=== PATIENT | male | born 1970 | race Caucasian/White ===

== ENCOUNTER → 2017-09-19 20:06 | Outpatient (REF) | payer BC, SELFPAY ==
[2017-09-19 20:24] LABS: Hemoglobin A1C 5.9 % (4.5-6.2)
[2017-09-19 20:27] LABS: HDL Cholesterol 35 mg/dL (40-60); LDL CHOLESTEROL 131 mg/dL (<100); Triglyceride 608 mg/dL (30-150)
[2017-09-19 20:39] LABS: Cholesterol 210 mg/dL (50-200)
== END ==
LOC: NCHCN 20:06
PROVIDERS: PCP Nurse Practitioner; Visit Provider Nurse Practitioner
DX: Z00.00 Encounter for general adult medical examination without abnormal findings (principal); Z13.1 Encounter for screening for diabetes mellitus; Z13.220 Encounter for screening for lipoid disorders
CPT/HCPCS: 80061; 83721; 83036

== ENCOUNTER → 2017-10-13 16:20 | Outpatient (REF) | payer BC, SELFPAY ==
--- NOTE | 2017-10-13 14:30 | SKI_PTH ---
PATIENT: Paxton Franco LOC: [facility] U#:[id number] AGE/SX: 54/M ROOM: RE10/13/[address]: Chad Zavala DO : 1970 BED: DIS: SPEC #: [id number] RECD: 10/13/17 17:45 STATUS: ERIC TURNER #: [id number] MASOUD: 10/13/17 14:[address]: Chad Zavala DEPT: Surgical Specimen RECD BY: Mariia Peña ENTERED: 10/13/17 17:46 SP TYPE: SKI OTHR DR: María Colmenares Tissues: 1 - SKIN BIOPSY(SHAVE/PUNCH) 2 - SKIN BIOPSY(SHAVE/PUNCH) Procedures: SKIN LEVEL 4 Comments: [id number]
== END ==
LOC: LBN 16:20
PROVIDERS: PCP Nurse Practitioner; Visit Provider Surgery
DX: D22.5 Melanocytic nevi of trunk (principal)
CPT/HCPCS: 88305

== ENCOUNTER 2018-03-18 18:30 | Emergency (ER) | payer BC, SELFPAY ==
[2018-03-18 18:40] VITALS: BP 135/86; PULSE 120; RESP 20; TEMP 36.5; O2SAT 98
--- NOTE | 2018-03-18 18:48 | ED.GENADUL_ITS ---
Discharge Plan Disposition Patient Disposition: HOME Condition: Good Discharge Details Chief Complaint: RespSymp Clinical Impression: CAP (community acquired pneumonia) Reason For Visit: painful cough Primary Care Provider: María Colmenares ED Provider: Jesse Green Meds and New Rx's Prescriptions: New benzonatate 100 mg capsule 100 mg PO TID PRN (Reason: cough) Qty: 20 RF: 0 ibuprofen 600 mg tablet 600 mg PO TID PRN (Reason: pain) Qty: 20 RF: 0 doxycycline hyclate 100 mg tablet 100 mg PO BID Qty: 14 RF: 0 Discharge Instructions Instructions: Community Acquired Pneumonia (ED) Additional Instructions: Your CT scan shows evidence of a peripheral pneumonia. Because of its location you will need close follow-up and radiology recommends repeat imaging in 6-8 weeks. We will treat you with doxycycline. Use benzonate for cough. Use Motrin for pain. Stay hydrated over the weekend. Follow-up with your primary care next week to see how you are doing. Return to the emergency department if you develop increasing shortness of breath, worsening pain, fever, altered mental status, other concerns. Referrals: María Colmenares [Primary Care Provider] - Discharge Data Discharge Date/Time-TO BE ENTERED AT DEPARTURE: 03/19/18 00:25 Discharge Physician: Renetta Brower Medical Decision Making <Renetta Brower DO - Last Filed: 03/19/18 20:49> 47yo M with no past medical history who presents with cold symptoms for the past 3 weeks which had improved until 2 days ago then developed significant left- sided anterior chest pain after a coughing fit today. Now complaining mainly of pain with deep breath. Denies any shortness of breath, fever. Heart rate 120s. Lungs clear to auscultation. Patient has no tenderness to palpation of his anterior and lateral chest wall on the left side where his area of pain is. He has no pain with movement. Although his presentation appears more muscular due to coughing, he does not have pain with movement or tenderness which I would expect with a chest wall strain. Due to his tachycardia which may be associated with an infection, will obtain EKG, labs including d-dimer, chest x-ray and will give a dose of Toradol and reassess. EKG notes a rate of 101, sinus tachycardia, no acute ST findings. 1999 --case endorsed to Dr. Green to follow-up on labs and imaging and final disposition. Medical Records Medical records reviewed: Yes I reviewed the patient's medical records. Lab Data Lab results reviewed: Yes I reviewed the patient's lab results. ECG Data Attestation: I personally reviewed and interpreted this ECG (s) as follows: Interpretation: 1903 -- 101 bpm. Sinus tachycardia. No acute ST elevation or depression. QTc 4 7. QRS 84. HPI <Renetta Brower DO - Last Filed: 03/19/18 20:49> General Mode of arrival: ambulatory . Date/Time Provider Initiated Documentation: 03/18/18 18:41 . Limitations to Documentation: no limitations . Information obtained by: patient . HPI Narrative: Patient is a 47-year-old male with no past medical history who presents with left-sided chest pain today that is worse with deep breath that became worse after coughing today. Patient states he has had cold symptoms for the past 3 weeks which had improved until 2 days ago when it returned with cold chills night at nighttime patient states his cough is mainly dry but occasionally productive of white sputum. Patient states today he was coughing when he felt a sudden onset of left-sided chest pain. Patient denies any pain with movement or palpation and states it only occurs with deep breath. Patient has not taken anything for pain. Patient denies any shortness of breath, recent travel, recent surgery, leg pain or swelling, sore throat or ear pain. He does admit to occasional tickle in the back of his throat. Related Data Home Medications Medication Instructions Recorded Confirmed benzonatate 100 mg PO TID PRN #20 cap 03/19/18 doxycycline hyclate 100 mg PO BID #14 tab 03/19/18 ibuprofen 600 mg PO TID PRN #20 tab 03/19/18 Previous Rx's Medication Instructions Recorded benzonatate 100 mg PO TID PRN #20 cap 03/19/18 doxycycline hyclate 100 mg PO BID #14 tab 03/19/18 ibuprofen 600 mg PO TID PRN #20 tab 03/19/18 Allergies Allergy/AdvReac Type Severity Reaction Status Date / Time No Known Allergies Allergy Unverified 03/18/18 23:54 General Stated Complaint: RespSymp REECE: 3 Review of Systems <DO Aubrey Birmingham Last Filed: 03/19/18 20:49> Review of Systems All systems reviewed & are unremarkable except as noted in HPI and below Constitutional Reports as per HPI, Denies chills and Denies fever(s) Eyes Denies blurry vision ENT Denies dizziness, Denies sore throat and Denies throat swelling Cardiovascular Denies chest pain and Denies dyspnea Respiratory Reports cough, Reports pain on inspiration, Reports pain with cough and Denies dyspnea Gastrointestinal Denies abdominal pain, Denies diarrhea and Denies vomiting Genitourinary Denies hematuria and Denies dysuria Musculoskeletal Denies back pain and Denies numbness Integumentary/Breasts Denies lesions and Denies rash Neurologic Denies dizziness, Denies focal weakness and Denies numbness Allergic/Immunologic Denies throat swelling PFSH <Renetta Brower DO - Last Filed: 03/19/18 20:49> Medical History No significant past medical history (Acute) Surgical History Biopsy, Soft Tissue (10/13/17) Social History Smoking/Tobacco Use Status: Never alcohol intake: current alcohol intake frequency: a few times a week substance use type: does not use Exam <Renetta Brower DO - Last Filed: 03/19/18 20:49> Const General: cooperative and healthy appearing Orientation: alert and awake HENMT Head: normal to inspection Ears: hearing grossly normal bilaterally, external ears normal and TM's normal bilaterally General nose exam: external nose normal Face and sinus: normal facial exam Mouth: oral mucosae normal Teeth and gingiva: dentition normal Throat: posterior oropharynx normal Eyes General: appearance normal, both eyes and all related structures Eyelids: eyelids normal EOM: EOM intact bilaterally Neck Neck: normal visual inspection Lymphatic: no lymphadenopathy noted Chest Chest: normal inspection of the chest, normal palpation of entire chest wall, no tenderness and other (No pain with movement noted) Resp Effort & Inspection: normal respiratory effort and able to speak in complete sentences Auscultation: clear to auscultation bilaterally Cardio Rate: regular rate Rhythm: regular rhythm GI Inspection: normal to inspection Palpation: soft, not firm, no guarding, no hepatosplenomegaly, no masses and nontender Auscultation: normal bowel sounds Skin General skin exam: no rashes or lesions noted Neuro General: alert and awake Cognition: normal cognition Speech: speech normal Gait: normal gait Motor: muscle tone normal throughout Sensory Exam: no sensory deficits noted Extrem General: normal to inspection, full ROM, normal capillary refill, calf tenderness and no edema Psych Appearance: grossly normal Mental Status: mental status grossly normal Speech and Movement: speech and movement normal Affect: normal affect Thought Process: normal Course <Renetta Brower DO - Last Filed: 03/19/18 20:49> Vital Signs Temperature 97.7 F 03/18/18 18:40 Pulse 120 H 03/18/18 18:40 Respiratory Rate 20 03/18/18 18:40 Blood Pressure 135/86 03/18/18 18:40 Pulse Oximetry 98 03/18/18 18:40 Temperature 97.7 F 03/18/18 18:40 Temperature Source Temporal Artery Scan 03/18/18 18:40 Pulse 120 H 03/18/18 18:40 Respiratory Rate 20 03/18/18 18:40 Respiratory Effort 03/18/18 18:43 Blood Pressure 135/86 03/18/18 18:40 Blood Pressure Position Sitting 03/18/18 18:40 Pulse Oximetry 98 03/18/18 18:40 Oxygen Delivery Method Room Air 03/18/18 18:40 Oxygen Flow Rate 0 03/18/18 18:40 Pain Level 10 03/18/18 18:40 Comment 03/18/18 18:40 Sign Out <Renetta Brower DO - Last Filed: 03/19/18 20:49> Sign Out Data: Sign Out Comment: Case endorsed to Dr. Green to follow-up on labs, imaging and final disposition. Last updated by Renetta Brower DO at 03/18/18 20:12 Post-Handoff Eval: Patient signed out to me pending laboratory studies and imaging. Patient had presented with prolonged cough and now has pleuritic chest pain. Laboratory studies significant for a mild elevation of white count as well as a mild anemia. Chemistries unremarkable. D-dimer positive. Troponin negative. Chest x-ray with a peripheral opacity consistent with pneumonia versus infarct. Because of the positive d-dimer and pleuritic pain CTA was ordered. The initial CTA of the chest was nondiagnostic as the pulmonary arteries were not opacified with dye. Patient was getting LR for hydration. Repeat CTA was ordered with continued hydration. Repeat chest CT is read as negative for pulmonary embolus. He does have what appears to be a peripheral pneumonia though radiology recommends a follow-up in 6-8 after therapy to be sure lesion/opacity has resolved. Patient vital signs are good except saturations are low to mid 90s. He is not tachypneic. He is a PSI class I should do fine outpatient. He will be started on doxycycline 100 mg twice a day. We will give Tessalon 100 mg 3 times a day for cough. Will have patient follow up with PCP next week. Return to ED if worse in anyway.
--- NOTE | 2018-03-18 18:59 | DI.RAD_ITS ---
SYMPTOM/DIAGNOSIS: LEFT SIDED CHEST PAIN, R/O ACUTE DISEASE PA AND LATERAL CHEST: There are no prior comparison exams. The heart size is normal. There is a somewhat rounded area of increased opacities seen in the left lower lobe laterally. The remainder of the lungs are clear. There is no evidence of an effusion. IMPRESSION: Left lower lobe opacity , could represent pneumonia vs mass or pulmonary infarct.
[2018-03-18] MEDS: Ketorolac 60 MG/2 ML VIAL IM (19:13)
[2018-03-18 20:45] LABS: Abs Immature Grans 0.04 k/cumm (0.0-0.09); Absolute Basophil Count 0.02 k/cumm (0.0-0.2); Absolute Eosinophil Count 0.18 k/cumm (0.0-0.7); Absolute Lymphocyte Count 1.98 k/cumm (1.2-3.4); Basophils % 0.2; Eosinophils % 1.6; HCT 38.5 % (40.0-50.0); HGB 12.8 g/dL (13.5-17.5); Immature Grans % 0.3; Lymphocytes % 17.2; Mean Corp. HGB Concentration 33.2 g/dL (32.0-36.0); Mean Corpuscular Hemoglobin 28.8 pg (27.0-33.0); Mean Corpuscular Volume 86.7 fL (80-95); Mean Platelet Volume 11.2 fL (8.0-11.0); Monocytes % 10.2; Neutrophils % 70.5; Platelet Count 241 x1000/uL (130-400); RBC 4.44 m/cumm (4.50-6.00); RBC Distribution Width 12.6 % (11.8-14.1); White Blood Cell Count 11.52 k/cumm (4.4-10.8)
[2018-03-18 20:46] LABS: Absolute Monocyte Count 1.18 k/cumm (0.11-0.7); Absolute Neutrophil Count 8.12 k/cumm (1.2-6.7)
--- NOTE | 2018-03-18 20:47 | DI.VRAD_ITS ---
EXAM: XR Chest, 2 Views EXAM DATE/TIME: 03/18/2018 7:00 PM CLINICAL HISTORY: 47 years old, male; Pain; Chest pain; Left-sided chest pain TECHNIQUE: XR of the chest, 2 views. COMPARISON: No relevant prior studies available. FINDINGS: Lungs: Peripheral left basilar opacity. Pleural space: No pneumothorax. No sizable pleural effusion. Heart/Mediastinum: No cardiomegaly. Bones/joints: Unremarkable. IMPRESSION: Peripheral left basilar opacity. This may represent pneumonia. Pulmonary infarct can have a similar appearance. Alternatively, this may represent a pleural-based lesion. Dictated and Authenticated by: Raul Alston MD. Ordering:HEIDE Jackson MD
[2018-03-18 20:48] LABS: ALT 18 U/L (12-78); AST 13 U/L (15-37); Albumin 3.2 g/dL (3.4-5.0); Alkaline Phosphatase 83 U/L (46-116); Anion Gap 10.9 mmol/L (3-11); BUN 14 mg/dL (7-18); Bilirubin, Total 0.5 mg/dL (0.2-1.0); CO2 26.1 mmol/L (21.0-32.0); CREATININE 0.96 mg/dL (0.70-1.30); Calcium 9.1 mg/dL (8.5-10.1); Chloride 101 mmol/L (98-107); Glucose 102 mg/dL (70-100); Magnesium 2.2 mg/dL (1.8-2.4); Potassium 3.8 mmol/L (3.5-5.1); Sodium 138 mmol/L (136-145); Total Protein 8.1 g/dL (6.4-8.2)
[2018-03-18 20:51] LABS: Troponin I < 0.02 ng/mL (0.00-0.06)
[2018-03-18 21:03] LABS: D-Dimer 2176 ng/mlFEU (<500)
[2018-03-18] MEDS: Lactated Ringers 1,000 ML 200 ML IV (21:23)
[2018-03-18] MEDS: Omnipaque 350 MG/ML 100 ML BTL IJ ×2 (21:43→22:58)
--- NOTE | 2018-03-18 21:45 | DI.CT_ITS ---
SYMPTOM/DIAGNOSIS: LEFT SIDED PAIN/POSITIVE D-DIMER, ABNORMAL CXR CT ANGIOGRAPHY OF THE CHEST: CT angiography was performed with multi slice acquisition and multi planar and 3D reconstruction. The exam was performed during the arterial phase. The aorta is well opacified with IV contrast. There is no evidence of dissection or aneurysm. The pulmonary arteries are suboptimally opacified No gross central filling defects are seen. More peripheral emboli cannot be excluded. There is a focus of rounded density in the left lower lobe anterolaterally. The findings could represent consolidation, mass or infarct. The remainder of the lungs are clear. There is no evidence of effusion, pleural or pericardial effusion or adenopathy. The visualized portions of the upper abdomen are unremarkable. No suspicious bony abnormalities are seen. IMPRESSION: Roughly 5 cm area of increased density in the left lower lobe may represent consolidated pneumonia, infarct or mass.
--- NOTE | 2018-03-18 22:25 | DI.VRAD_ITS ---
EXAM: CT Angiography Chest With Contrast EXAM DATE/TIME: 03/18/2018 9:10 PM CLINICAL HISTORY: 47 years old, male; Signs and symptoms; Other: Abnormal cxr; Additional info: Elevated d-dimer TECHNIQUE: Axial computed tomographic angiography images of the chest with intravenous contrast using CT angiography protocol. All CT scans at this facility use at least one of these dose optimization techniques: automated exposure control; mA and/or kV adjustment per patient size (includes targeted exams where dose is matched to clinical indication); or iterative reconstruction. Coronal and sagittal reformatted images were created and reviewed. MIP reconstructed images were created and reviewed. CONTRAST: 88 ml of [id number] administered intravenously. COMPARISON: CR XR CHEST 2V PA LATERAL 03/18/2018 8:24 PM FINDINGS: Pulmonary arteries: Due to timing of the scan after the injection of intravenous contrast, there is poor opacification of the pulmonary arteries; therefore, study is nondiagnostic for evaluation of pulmonary embolus. Aorta: No aortic aneurysm. No aortic dissection. Lungs: Within the superior segment of the left lower lobe, there is a 4.7 x 4.3 cm heterogeneous focus, which corresponds to the opacity seen on the recent chest radiograph. Pleural space: Normal. No pneumothorax. No pleural effusion. Heart: No cardiomegaly. No pericardial effusion. Lymph nodes: Unremarkable. No enlarged lymph nodes. Bones/joints: Unremarkable. No acute fracture. Soft tissues: Unremarkable. IMPRESSION: 1. Due to timing of the scan after the injection of intravenous contrast, there is poor opacification of the pulmonary arteries; therefore, study is nondiagnostic for evaluation of pulmonary embolus. 2. Within the superior segment of the left lower lobe, there is a 4.7 x 4.3 cm heterogeneous focus, which corresponds to the opacity seen on the recent chest radiograph. This most likely represents pneumonia. However, pulmonary infarct and carcinoma are also in the differential diagnoses. After appropriate therapy, recommend followup in 6-8 weeks to document resolution. Dictated and Authenticated by: Raul Alston MD. Ordering:JADE Molina MD
--- NOTE | 2018-03-18 22:38 | DI.CT_ITS ---
SYMPTOM/DIAGNOSIS: NON-DIAGNOSTIC CTA PREVIOUSLY CHEST CT FOR PULMONARY EMBOLISM: Comparison: CTA of the same day. CT angiography was performed with multi slice acquisition and multi planar and 3D reconstruction. The exam was performed following IV contrast. The pulmonary arteries and aorta are well opacified. No pulmonary artery filling defects are seen. There is again noted to be an area of increased opacity in the left lower lobe. This most likely represents pneumonia, mass or infarct are also possibilities. Clinical correlation is recommended. Follow up chest x-ray is recommended.
[2018-03-18 23:00] VITALS: BP 122/74; PULSE 84; RESP 16; TEMP 36.6; O2SAT 94
--- NOTE | 2018-03-18 23:46 | DI.VRAD_ITS ---
EXAM: CT Angiography Chest With Contrast EXAM DATE/TIME: 03/18/2018 10:39 PM CLINICAL HISTORY: 47 years old, male; Signs and symptoms; Cough; Patient HX: Painful cough, rule out pe; Additional info: Previous non-diagnostic pe study performed. TECHNIQUE: Axial computed tomographic angiography images of the chest with intravenous contrast using CT angiography protocol. All CT scans at this facility use at least one of these dose optimization techniques: automated exposure control; mA and/or kV adjustment per patient size (includes targeted exams where dose is matched to clinical indication); or iterative reconstruction. Coronal and sagittal reformatted images were created and reviewed. MIP reconstructed images were created and reviewed. CONTRAST: 100 ml of Omnipaque 350 administered intravenously. COMPARISON: CT Private^PE (Adult) 03/18/2018 9:35 PM FINDINGS: Pulmonary arteries: No acute pulmonary embolus. Aorta: Normal. No aortic aneurysm. No aortic dissection. Lungs: Within the superior segment of the left lower lobe, there is a 4.7 x 4.3 cm heterogeneous focus, which corresponds to the opacity seen on the recent chest radiograph. Pleural space: Normal. No pneumothorax. Trace left pleural effusion. Heart: No cardiomegaly. Lymph nodes: Unremarkable. No enlarged lymph nodes. Bones/joints: Unremarkable. No acute fracture. Soft tissues: Unremarkable. IMPRESSION: 1. No acute pulmonary embolus. 2. Within the superior segment of the left lower lobe, there is a 4.7 x 4.3 cm heterogeneous focus, which corresponds to the opacity seen on the recent chest radiograph. This most likely represents pneumonia. However, pulmonary infarct and carcinoma are also in the differential diagnoses. After appropriate therapy, recommend followup in 6-8 weeks to document resolution. Dictated and Authenticated by: Raul Alston MD. Ordering:JADE Molina MD
[2018-03-19] MEDS: Doxycycline Hyclate 100 MG CAP PO (00:34)
[2018-03-19] MEDS: Benzonatate 100 MG CAP PO (00:34)
[2018-03-19 00:37] VITALS: BP 122/74; PULSE 84; RESP 16; TEMP 36.6; O2SAT 94
== END 2018-03-19 00:25 | disposition home or self-care (01) ==
PROVIDERS: Physician Assistant; Emergency Provider Emergency Medicine; PCP Nurse Practitioner
DX: J18.9 Pneumonia, unspecified organism (principal); R00.0 Tachycardia, unspecified
CPT/HCPCS: 36415; 71275; 80053; 96360; 96361; 96372; 99285; 71046; 83735; 84484; 85025; 85379; J1885; J3490

== ENCOUNTER 2018-06-19 01:43 | Outpatient (CLI) | payer BC, SELFPAY ==
--- NOTE | 2018-06-19 14:45 | DI.CT_ITS ---
SYMPTOMS/DIAGNOSIS: ABNORMAL FINDINGS ON DIAGNOSTIC IMAGING OF LUNG, R91.8, ? MASS VERSUS LEFT LOWER LOBE PNEUMONIA, CONTINUES TO COUGH SOME BLOOD BUT ASSOCIATED WITH BLOODY NOSE CHEST CT: CT examination of the chest was performed with a bolus infusion of 70 cc of Omnipaque 350. The examination is compared with most recent chest CT of 03/18/2018. Previous examination showed a 46 mm in diameter mass-like lesion of the left lower lobe. Small left pleural effusion or pleural thickening also was present on the previous examination. On today's examination, this mass-like radiodensity has decreased significantly in size and now measures about 21 mm in greatest diameter. There is a small area of cavitation. An air bronchogram appears to traverse the inferior aspect of the lesion. No definite pleural effusion seen on today's examination. No new pulmonary lesion identified. Tracheobronchial tree appears intact. No mediastinal or hilar adenopathy. Ectasia of the aortic root and ascending aorta is noted at about 43 mm. No evidence of pulmonary embolic disease. Images obtained through the upper abdomen show unremarkable appearance of visualized portions of the liver, spleen, pancreas, adrenals and kidneys. CONCLUSION: Interval decrease in size of left lower lobe intrapulmonary mass- like lesion, which is now cavitating. The findings are most consistent with an infectious process. Neoplastic disease not excluded and a follow-up chest CT is recommended in four to six weeks.
== END 2018-06-19 02:03 ==
PROVIDERS: PCP Nurse Practitioner; Visit Provider Specialist/Technologist Athletic Trainer
DX: R91.8 Other nonspecific abnormal finding of lung field (principal); R05 Cough; R04.2 Hemoptysis; J90 Pleural effusion, not elsewhere classified
CPT/HCPCS: 71260

== ENCOUNTER 2022-10-11 18:30 | Outpatient (REF) | payer OTHER, SELFPAY ==
[2022-10-11 15:47] LABS: HCT 42.8 % (40.0-50.0); HGB 14.5 g/dL (13.5-17.5); MCH 29.4 pg (27.0-33.0); MCHC 33.9 % (32.0-36.0); MCV 87 fL (80-95); MPV 13.3 fL (8.0-11.0); RBC 4.93 10^6/uL (4.36-5.78); RDW 12.5 % (11.8-14.1); RDW-SD 39.8 fL; WBC 4.42 10^3/uL (4.4-10.8)
[2022-10-11 16:02] LABS: ALT 32 U/L (16-63); AST 17 U/L (15-37); Albumin 4.1 g/dL (3.4-5.0); Alkaline Phosphatase 91 U/L (46-116); Anion Gap 10.1 mmol/L (3-11); BUN 14 mg/dL (7-18); Bilirubin, Total 0.6 mg/dL (0.2-1.0); CO2 24.9 mmol/L (21.0-32.0); Calcium 9.1 mg/dL (8.5-10.1); Calculated LDL 129 mg/dL (<100); Chloride 105 mmol/L (98-107); Cholesterol 200 mg/dL (<200); Estimated GFR 89.44 (mL/min/1.73m2); Glucose 97 mg/dL (74-106); HDL Cholesterol 45 mg/dL (40-60); Potassium 4.2 mmol/L (3.5-5.1); Sodium 140 mmol/L (136-145); Total Protein 7.2 g/dL (6.4-8.2); Triglyceride 130 mg/dL (<150)
[2022-10-11 16:35] LABS: Platelet Count 166 10^3/uL (130-400)
[2022-10-11 16:36] LABS: Hemoglobin A1C 5.8 % (<5.7)
[2022-10-16 15:47] LABS: Testosterone, Total 254 ng/dL (240-950)
== END 2022-10-11 18:31 | disposition home or self-care (01) ==
LOC: NCHCN 18:30
PROVIDERS: PCP Nurse Practitioner; Visit Provider Family Medicine
DX: Z00.00 Encounter for general adult medical examination without abnormal findings (principal); R73.03 Prediabetes; E78.1 Pure hyperglyceridemia
CPT/HCPCS: 80053; 80061; 84402; 84403; 85027; 83036

== ENCOUNTER → 2022-11-01 00:47 | Outpatient (CLI) | payer OTHER, SELFPAY ==
--- NOTE | 2022-11-01 | DI.RAD_ITS ---
Exam(s) XR CHEST 2V PA LATERAL EXAM: XR CHEST 2V PA LATERAL CLINICAL HISTORY: CAVITATING MASS LEFT LOWER LUNG LOBE J98.4 TECHNIQUE: 2D digital imaging was performed. COMPARISON: CT CT CHEST W from 06/19/2018 FINDINGS: HEART: Normal size. Aorta: Not dilated. PULMONARY VASCULATURE: Normal. LUNGS: Clear. PLEURAL SPACE: No pleural effusion or pneumothorax. BONE:Unremarkable for age. IMPRESSION: No acute abnormality. DATA REPOSITORY: RADIATION DOSE DELIVERED:
== END ==
PROVIDERS: PCP Nurse Practitioner; Visit Provider Family Medicine
DX: J98.4 Other disorders of lung (principal)
CPT/HCPCS: 71046

== ENCOUNTER 2022-11-11 12:59 | Outpatient (REF) | payer OTHER, SELFPAY ==
[2022-11-11 19:59] LABS: TSH (W/Ref FT4) 2.46 uIU/mL (0.36-3.74)
[2022-11-12 18:23] LABS: LH 3.9 mIU/mL (1.5-9.3)
[2022-11-18 18:33] LABS: Testosterone, Free 11.3 ng/dL (4.06-15.6); Testosterone, Total 341 ng/dL (240-950)
== END 2022-11-11 13:00 | disposition home or self-care (01) ==
LOC: NCHCN 12:59
PROVIDERS: PCP Nurse Practitioner; Visit Provider Family Medicine
DX: E29.1 Testicular hypofunction (principal)
CPT/HCPCS: 84402; 84403; 83001; 83002; 84443

== ENCOUNTER 2023-05-23 07:46 | Day surgery (SDC) | payer OTHER, SELFPAY ==
--- NOTE | 2023-05-22 20:08 | W.COLOREPORT ---
Date of service: 05/23/23 Time of Service: 14:17 Colonoscopy Report Date of procedure: 05/23/23 Pre-op diagnosis general: CRC screening Post-op diagnosis procedure note: other (Internal hemorrhoids/diverticula/polyps) Surgeon: Nevin Neves Anesthesia Type: General:No Airway Estimated blood loss (mL): 1 Pathology: other Complications: None Disposition: same day Prep: Miralax/Dulcolax Retraction Time: 12 Procedure Description: After informed consent was obtained the patient was taken to the procedure room and placed in a left decubitous position. Monitors were applied and a time out was done. The patients name, date of , procedure, allergies to medications and metal in their body was reviewed. The patient was then sedated. Once sedated and comfortable a rectal exam was done. External exam was normal. Internal exam revealed a normal sphincter tone and no palpable masses. The prostate no palpable masses The scope was then introduced and retrofelexed. Grade 2 internal hemorrhoids x 1 column were identified. The scope was then advanced to the cecum without difficulty. The TI and appendiceal orifice were identified. The scope was then slowly retracted over 12 minutes back into the rectum. There is a flat 5 mm polyp at 80 cm. This is removed with a cold biting forcep. All specimens are retrieved and no bleeding is noted. There are medium and small diverticula, few in number, confined to the sigmoid colon. There is no signs of active bleeding or infection. The scope was removed and the patient was woken up and taken back to Same day surgery in stable condition. The patient tolerated the procedure well and there were no immediate complications. Follow up: The patient should follow up in 7 years, path pending unless they develop changes in bowel habits or other new gastrointestinal complaints. [place] Bowel Prep [place] Bowel Prep Right Colon: 3 Left Colon: 3 Transverse Colon: 3 Total Score: 9
--- NOTE | 2023-05-22 20:09 | PDOC.DSDIS_ITS ---
Date of service: 05/23/23 Time of Service: 10:43 Discharge Plan Disposition Patient Disposition: Home Condition: Good Discharge Details Reason For Visit: colon cancer screening Attending Provider: Nevin Neves Primary Care Provider: Radha Sanchez Home Meds and New Rx's Prescriptions: Discontinued bisacodyl [Dulcolax (bisacodyl)] 5 mg tablet,delayed release (DR/EC) 5 mg PO ONCE Qty: 4 0RF Rx Instructions: Take per colonoscopy instructions provided by ordering providers office polyethylene glycol 3350 17 gram/dose powder 17 g PO ONCE Qty: 238 0RF Rx Instructions: Take per colonoscopy instructions provided by ordering providers office Discharge Instructions Additional Instructions: DSU Colonoscopy Post- Op Instructions Instructions for Everyone who is given Anesthesia: For your safety, please do the following for the next twenty-four (24) hours: *Do Not operate a motor vehicle (car, truck, motorcycle, etc.) *Do Not drink alcoholic beverages or use any recreational drugs for the first 24 hours or while taking pain medications. The medications in your body may have a reaction that can be dangerous. *Do Not make any important decisions or sign any important papers. Findings: Polyps-my office will send you a letter in 2 to 3 weeks time with the results of the pathology and when we want you to repeat the colonoscopy, most likely 5 to 7 years time. Diverticula-make sure you are moving your bowels on a regular basis and not straining to go to the bathroom. If you find you are having issues with chronic constipation or straining then it is recommended you start a fiber supplement, such as Metamucil or Citrucel. See handout 1. No lifting over 20 pounds or strenuous activity for the first 24 hours after your procedure. After 24 hours there are no restrictions on your activity but you may feel fatigued for a few days. 2. After you arrive home you may have a light meal and return to your normal diet as you can tolerate it without feeling sick to your stomach. 3. You may have a bloated, gaseous feeling in your belly (abdomen) after a colonoscopy. Passing gas and belching will help. Walking or lying down on your left side with your knees flexed may relieve the discomfort. Call the office at [phone] (Office) or [phone] (Hospital) right away if you notice any of the following: a.Vomiting of blood or ?coffee ground stools?. b.Rectal bleeding 1Tbsp, blood clots or continuous bleeding. c.Severe belly (abdominal) pain. d.A hard distended belly (abdomen) and an inability to pass gas. 4. Please don?t expect to have a normal BM (bowel movement) for 2-3 days after your procedure. 5. If there are questions regarding the findings of your procedure, please contact your doctor 6. If you are unable to contact your doctor with a problem, contact the hospital at [phone]. 7. Continue all your regular medications unless directed otherwise. I understand the above instructions and have no questions. Signature of Patient or Adult Escort Name of Responsible Adult Escort Signature of Nurse Date/Time Stand Alone Forms: Anesthesia Discharge Inst., Best Gallegos (DSU) Activity:: see above Diet:: see above Discharge Orders Discharge Orders: Discharge Order (Routine); Ordered 05/23/23 Ordered By: Nevin Neves DS: Diagnosis Discharge Diagnosis (1) Hypertriglyceridemia: (2) Prediabetes: (3) Low testosterone: (4) Screening for malignant neoplasm of colon performed: Status: Acute Asessment and Plan: The patient is seen and examined after their colonoscopy.? The patient has been able to pass gas.? They are not having abdominal pain.? They have been able to tolerate liquids and a snack.? They do not have any nausea or vomiting.? They are not having any chest pain or shortness of breath.??? They are not having any rectal bleeding. Their vital signs have been stable-see nursing notes. We discussed findings during their colonoscopy, and any biopsies that were done/polyps that were removed. The patient will be sent a letter with any biopsy results, and when to repeat the colonoscopy.-see discharge instructions. Patient was given explicit instructions to follow-up regarding colonoscopy-refer to discharge instructions.? We reviewed resumption of medications. Patient verbalized understanding and discharged in stable and satisfactory condition- See nursing notes. (5) Colon polyp: Status: Acute
[2023-05-23 08:28] VITALS: BP 126/88; PULSE 64; RESP 16; TEMP 36.7; O2SAT 98
--- NOTE | 2023-05-23 08:34 | ANES.PREOP_ITS ---
General Info Date of Service Date Performed: 05/23/23 Height: 6 ft 4 in Weight: 128.8 kg Body Mass Index (BMI): 34.5 Surgical Procedure: Operation Date: 05/23/23 09:05 Proposed Procedure Side Surgeon aniya Neves, Meds Allergies and Home Medications Allergies Allergy/AdvReac Type Severity Reaction Status Date / Time No Known Allergies Allergy Verified 05/23/23 08:25 Current Visit Medications: Current Medications Generic Name Dose Route Start Last Admin Trade Name Freq PRN Reason Stop Dose Admin Hyoscyamine Sulfate 0.125 mg 05/23/23 02:01 Hyoscyamine 0.125 Mg Sl/Oral/Chew SL 06/22/23 02:00 DIRECTED PRN Ringer's Solution 1,000 mls @ 80 mls/hr 05/23/23 06:00 IV 05/23/23 23:59 INFUSION [facility] IV Miscellaneous Supplies 1 each 05/23/23 06:00 Iv Access IV 05/23/23 23:59 DIRECTED FINA Ondansetron HCl 4 mg 05/23/23 02:01 Ondansetron 4 Mg/2 Ml Vial IVP 06/22/23 02:00 Q4H PRN PRN Nausea / Vomiting Sodium Chloride 0 ml 05/23/23 06:00 Normal Saline Flush 10 Ml Syr IV 05/23/23 23:59 PRN PRN Sodium Chloride 0 ml 05/23/23 06:00 Normal Saline 10 Ml Vial IJ 05/23/23 23:59 DIRECTED PRN Sterile Water 0 ml 05/23/23 06:00 Water,Injection,Sterile 10 Ml Vial IJ 05/23/23 23:59 DIRECTED PRN PFSH Active Problems Active Problems: Problem Status Onset Code Screening for malignant neoplasm of colon performed Z12.11 Medical History Medical History Soft tissue mass Skin lesion Prediabetes Hypertriglyceridemia Epistaxis Cavitating mass in left lower lung lobe Fatigue Low testosterone No significant past medical history Surgical History Surgical History Biopsy, Soft Tissue (10/13/17) skin of back, left upper - melanocytic nevus. Right lower - melanocytic nevus. Tobacco Smoking/Tobacco Use Status: Never Alcohol Alcohol Intake: current Alcohol intake frequency: a few times a month Alcohol ty pe: beer Substance Use Substance use: Never Substance use type: does not use Details: alcohol: t-7, one beer Vital Signs and Lab Results Vital Signs Most Recent Vital Signs in EMR: Most Recent Vital Signs Temp Pulse Resp BP Pulse Ox 36.7 C 64 16 126/88 98 05/23/23 08:28 05/23/23 08:28 05/23/23 08:28 05/23/23 08:28 05/23/23 08:28 Lab Results Blood Type / Crossmatch: No Data to Display Complete Blood Count: No Data to Display Complete Metabolic Panel: No Data to Display Liver Function Panel: No Data to Display Coagulation Panel: No Data to Display Cardiac Panel: No Data to Display Arterial Blood Gas: No Data to Display Venous Blood Gas: No Data to Display Pancreas Panel: No Data to Display Thyroid Panel: No Data to Display Infectious Disease: No Data to Display Blood Cultures: No Data to Display Toxicology Panel: No Data to Display Anesthesia Assessment and Plan Anesthesia History Personal History: No History of Anesthesia Complications Family History: No Family History of Anesthesia Complications Exercise Tolerance Exercise Tolerance: Metabolic Equivalents>4 Pertinent Negatives Pertinent Negatives: No Symptoms of GERD, No Major Cardiovascular Symptoms or Complaints, No Major Pulmonary Symptoms or Complaints and No History of CVA/TIA Cardiac & Pulmonary Exam Cardiac Exam: Normal S1/S2 Heart Sounds Pulmonary Exam: Clear Bilateral Breath Sounds Implantable Cardiac Device Does patient have a Pacemaker or an ICD?: No Airway Exam Known Difficult Airway: No Mallampati Class: 2 Mouth Opening: Normal (> 3cm) Thyromental Distance: Greater than 3 cm Facial Hair: Full Nation Neck Range of Motion: Full ROM Neck Circumference: Normal Teeth Condition: Edentulous (dentures at home) ASA Classification ASA Score: ASA 2 Emergency Case?: No NPO Status NPO Status: NPO Clears >2 hours, Solids >8 hours Anesthesia Plan Resuscitation Status: Full Code Anesthesia Technique: General Anesthesia Airway Planned: Natural Airway Monitors Used: Standard Monitors Preoperative Comments:: Prediabetic, watching diet
[2023-05-23] MEDS: Lactated Ringers 1,000 ML 80 ML IV (08:45)
[2023-05-23 08:58] VITALS: BMI 34.5
--- NOTE | 2023-05-23 09:16 | BOWEL_PTH ---
PATIENT: Paxton Franco LOC: [facility] U#:[id number] AGE/SX: 52/M ROOM: RE05/23/[address]: Nevin Neves : 1970 BED: DIS: 05/23/2023 SPEC #: [id number] RECD: 05/23/23 09:47 STATUS: ERIC REElmer #: [id number] MASOUD: 05/23/23 09:[address]: Nevin Neves DEPT: Surgical Specimen RECD BY: Mariia Peña ENTERED: 05/23/23 09:48 SP TYPE: Bowel OTHR DR: Radha Sanchez Tissues: 1 - BIOPSY BOWEL Procedures: GROSS AND MICRO LEVEL 4 Comments: [id number]
[2023-05-23 09:29] VITALS: BP 105/76; PULSE 81; RESP 16; TEMP 36.4; O2SAT 91
--- NOTE | 2023-05-23 09:50 | W.ANESPOSTOP ---
Postoperative Evaluation Date, Time and Location Date Performed: 05/23/23 Time Performed: 09:38 Patient Location: Day Surgery Unit Vital Signs Most Recent Imported Vital Signs: Most Recent Vital Signs Temp Pulse Resp BP Pulse Ox 36.4 C L 81 16 105/76 91 L 05/23/23 09:29 05/23/23 09:29 05/23/23 09:29 05/23/23 09:29 05/23/23 09:29 Pain Score Most Recent Pain Score: Most Recent Pain Score Pain Level 0 05/23/23 09:29 Assessment Mental Status: Awake (Alert & Oriented to Patient Baseline) Airway and Respiratory Function: Patent airway with normal (patient baseline) respiratory exam Cardiovascular Function: Hemodynamically Stable Hydration Status: Adequately Hydrated Nausea & Vomiting: No Nausea or Vomiting Pain: Pt. Denies Any Pain Peripheral Nerve Block: Patient did not receive a nerve block
[2023-05-23 09:54] VITALS: BP 110/80; PULSE 56; RESP 16; TEMP 36; O2SAT 97
== END 2023-05-23 11:03 | disposition home or self-care (01) ==
LOC: SUR 07:47
PROVIDERS: PCP Family Medicine; Visit Provider Surgery
PROC: 0DJD8ZZ Inspection of Lower Intestinal Tract, Via Natural or Artificial Opening Endoscopic (ICD-10-PCS; CPT 45378; principal; 2023-05-23 09:00)
DX: Z12.11 Encounter for screening for malignant neoplasm of colon; D12.4 Benign neoplasm of descending colon; K64.1 Second degree hemorrhoids; K57.30 Diverticulosis of large intestine without perforation or abscess without bleeding
CPT/HCPCS: 45380; 88305; J1596; J2001; J2704

== ENCOUNTER 2024-04-02 14:52 | Outpatient (REF) | payer OTHER, SELFPAY ==
[2024-04-02 17:18] LABS: ALT 25 U/L (16-63); AST 17 U/L (15-37); Albumin 4.1 g/dL (3.4-5.0); Alkaline Phosphatase 82 U/L (46-116); Anion Gap 9.2 mmol/L (3-11); BUN 16 mg/dL (7-18); Bilirubin, Total 0.45 mg/dL (0.2-1.0); CO2 26.8 mmol/L (21.0-32.0); CREATININE 1.1 mg/dL (0.70-1.30); Calcium 9.3 mg/dL (8.5-10.1); Calculated LDL 125 mg/dL (<100); Chloride 109 mmol/L (98-107); Cholesterol 211 mg/dL (<200); Estimated GFR 79.28 (mL/min/1.73m2); Glucose 94 mg/dL (74-106); HDL Cholesterol 48 mg/dL (40-60); Potassium 4.4 mmol/L (3.5-5.1); Sodium 145 mmol/L (136-145); Total Protein 7.1 g/dL (6.4-8.2); Triglyceride 190 mg/dL (<150)
[2024-04-02 22:54] LABS: PSA, Screening 1.5 ng/mL (<=3.5)
[2024-04-02 23:56] LABS: Hepatitis C Ab w Rflx HCV PCR Negative (Negative)
[2024-04-03 00:05] LABS: HIV-1/2 Ag & Ab Screen Negative (Negative)
== END 2024-04-02 14:53 | disposition home or self-care (01) ==
LOC: NCHCN 14:52
PROVIDERS: PCP Family Medicine; Visit Provider Family Medicine
DX: R73.03 Prediabetes (principal); Z11.4 Encounter for screening for human immunodeficiency virus [HIV]; Z11.59 Encounter for screening for other viral diseases; Z12.5 Encounter for screening for malignant neoplasm of prostate
CPT/HCPCS: 80053; 80061; 84153; 86803; 87389; 83036

== ENCOUNTER 2024-09-29 09:13 | Emergency (ER) | payer BC, SELFPAY ==
[2024-09-29 09:17] VITALS: BP 137/76; PULSE 63; RESP 16; TEMP 36.1; O2SAT 96
--- NOTE | 2024-09-29 09:43 | ED.GENADUL_ITS ---
Discharge Plan Disposition Patient Disposition: Home Condition: Stable Discharge Details Clinical Impression: Nephrolithiasis, Acute UTI Primary Care Provider: Radha Sanchez ED Provider: Lanie Koenig Home Meds and New Rx's Prescriptions: New ondansetron 4 mg tablet,disintegrating 4 mg PO Q6H PRN (Reason: nausea and vomiting) Qty: 10 0RF ciprofloxacin HCl [Cipro] 500 mg tablet 500 mg PO BID 7 Days Qty: 14 0RF Discharge Instructions Instructions: Kidney Stone, Adult ED, Urinary Tract Infection, Adult ED Additional Instructions: As we discussed, you do have a 1.1 cm stone on the right side which is what caused your pain prior to arrival. Based on the positioning and location, this is likely why you are currently not having any discomfort. However, the urology team and myself do not feel that this will pass on its own. You will need to have intervention to be will to have this removed. You also have evidence to suggest a urinary tract infection and will need antibiotics prior to the procedure. I have prescribed you Bactrim and this has been sent to your local pharmacy. Please encourage hydration. Please take all the antibiotics even if your symptoms seem to improve. You may use the Zofran if you have any recurrence of your nausea or vomiting. As we discussed, anti-inflammatories like ibuprofen or Motrin can help the best with discomfort but you may also use Tylenol. If you develop fever/chills, increased pain, inability stay hydrated or other new/worsening symptoms please seek care urgently once again. Otherwise, plan is for you to see urology within the next week for reevaluation and to discuss definitive plan. Referrals: Terry Argueta MD [ [facility] STAFF PHYSICIAN, Urology] Radha Sanchez [Primary Care Provider, Medicine] Discharge Data Discharge Date/Time-TO BE ENTERED AT DEPARTURE: 09/29/24 12:46 HPI General Date/Time Provider Initiated Documentation: 09/29/24 09:43 . Limitations to Documentation: no limitations . Information obtained by: patient, family and RN notes reviewed . History of Present Illness 54 year old M presents to the emergency department with the chief complaint of right flank pain, described as severe and similar to prior episodes (felt like prior kidney stones), Quality is described as stabbing, and is localized to the back (right flank). Patient reports radiation to (to the groin). Patient started experiencing this hour(s) and it has been now resolved. No relieving factors improve symptom(s), No exacerbating factors reported . Patient notes nausea/vomiting; denies chest pain, diaphoresis, fever/chills, malaise, rash, shortness of breath and weakness. Patient did receive the following treatments prior to arrival, none Related Data Home Medications ?Medication ?Instructions ?Recorded ?Confirmed ondansetron 4 mg disintegrating 4 mg PO Q6H PRN nausea and 09/29/24 tablet vomiting #10 tabs ciprofloxacin HCl 500 mg tablet 500 mg PO BID 7 days # 14 tabs 10/02/24 (Cipro) Previous Rx's ?Medication ?Instructions ?Recorded ondansetron 4 mg disintegrating 4 mg PO Q6H PRN nausea and 09/29/24 tablet vomiting #10 tabs ciprofloxacin HCl 500 mg tablet 500 mg PO BID 7 days # 14 tabs 10/02/24 (Cipro) Allergies Allergy/AdvReac Type Severity Reaction Status Date / Time No Known Allergies Allergy Verified 09/29/24 09:19 General Stated Complaint: FlankPain REECE: 3 Review of Systems Constitutional Constitutional: Reports as per HPI, Denies chills, Denies fever(s) and Denies headache(s) ENT Ears, Nose, Mouth, and Throat: Denies headache(s) Cardiovascular Cardiovascular: Reports as per HPI, Denies chest pain and Denies dyspnea Respiratory Respiratory: Reports as per HPI, Denies cough and Denies dyspnea Gastrointestinal Gastrointestinal: Reports as per HPI, Denies abdominal pain, Denies constipation, Denies heartburn, Denies loose stools, Reports nausea, Reports vomiting and Denies hematemesis Genitourinary Genitourinary: Reports as per HPI, Denies genital lesions, Denies penile discharge, Denies scrotal swelling, Denies testicular pain, Denies urinary frequency and Denies urinary hesitancy Musculoskeletal Musculoskeletal: Reports as per HPI Neurologic Neurologic: Denies headache(s) Exam Const General: cooperative, healthy appearing, comfortable, no acute distress and well developed Nutritional Appearance: well nourished and overweight Orientation: alert and awake Resp Effort & Inspection: normal respiratory effort and no respiratory distress Auscultation: clear to auscultation bilaterally, no rales, no rhonchi and no wheezes Cardio Rate: regular rate Rhythm: regular rhythm Heart Sounds: S1 normal and S2 normal GI Inspection: normal to inspection, no edema and non-distended Palpation: soft, no hepatosplenomegaly, no guarding and nontender Percussion: normal to percussion Back/Spine/Pelvis Back: no CVA tenderness Skin General skin exam: no rashes or lesions noted Neuro General: patient alert and patient awake Cognition: normal cognition Speech: speech normal Gait: normal gait Course Vital Signs Vital signs: Vital Signs Temperature 36.1 C L 09/29/24 09:17 Pulse 63 09/29/24 09:17 Respiratory Rate 16 09/29/24 09:17 Blood Pressure 137/76 09/29/24 09:17 Pulse Oximetry 96 09/29/24 09:17 Temperature 36.1 C L 09/29/24 09:17 Temperature Source Tympanic 09/29/24 09:17 Pulse 63 09/29/24 09:17 Respiratory Rate 16 09/29/24 09:17 Blood Pressure 137/76 09/29/24 09:17 Blood Pressure Position Sitting 09/29/24 09:17 Pulse Oximetry 96 09/29/24 09:17 Oxygen Delivery Method Room Air 09/29/24 09:17 Oxygen Flow Rate 0 09/29/24 09:17 Pain Level 0 09/29/24 09:17 Medical Decision Making Patient is a pleasant 54-year-old gentleman with past medical history significant for prediabetes, hypertriglyceridemia, cavitating mass in the left lower lobe lung lobe, nephrolithiasis, presenting today with concerns for recurrent kidney stones. He reports that 3 AM he was awoken suddenly with right-sided flank pain that radiates down to his groin. He states it does feel similar to when he has had kidney stones historically. He states that his last bout of this was about 3 years ago and typically he is able to increase his hydration and does well. However, he is concerned that he has had multiple stones historically and does not believe that he has passed any of these. He denies any recent fevers or chills. No abdominal surgery. No change in his pain with p.o. intake although he does report that he had 2 episodes of emesis this morning which he associates with severe flank pain. He does report that after vomiting he did have improvement of his flank discomfort so that now his pain is significantly resolved. However, he does report that the pain can wax and wane significantly. He denies any gross hematuria. On exam, the patient appears nontoxic. He is hemodynamically stable. Afebrile. Abdomen is benign with no tenderness, he has no flank pain at this point but does indicate the CVA area. Maximal tenderness when the pain does begin to increase again. Primarily concern for recurrent kidney stones. Patient does report that he has had stones on both side so unclear if he may have passed the stones was not aware that he had actually passed stone. As his pain is improved, stone is likely moved, hopefully into the bladder. However, given his history and concern for more obstructive pathology with inability to pass his prior stones, will obtain imaging for further evaluation as well as baseline labs. He declines any antiemetics or analgesics at this time. Labs reviewed, no leukocytosis, stable H&H, normal kidney function. Waiting for UA. CT reviewed by radiologist: IMPRESSION: 1.1 cm right renal pelvic stone causing mild hydronephrosis. UA concerning for infection. Patient does not appear septic, he has no UTI symptoms, is feeling systemically well. With concerns for infected stone, will speak with urology. Constuled [facility] Kortney Grier with urology. Reviewed imaging- radiologist notes 1.1cm stone in renal pelvis with mild hydronephrosis. Also discussed concerns in elisha UA with possible infection. She recommends oral therapy for abx for now then will plan for surgical intervention. He has no active symptoms of infection. Recommends Bactrim for 5-7 days. She will then f/u with him in the office. He has no leukocytosis or systemic symptoms. Will return emergently with any new/worsening symptoms or concerns for developing infection/feeling unwell. They will call to schedule f/u with urology in one week. Encouraged supportive care, hydration. Will give Bactrim after speaking with urology. Will also give Zofran to use in the event that he develops recurrently nausea/vomiting. Kortney and Regina discussed Flomax but given the wsize ofthe stone, she advised it will not pass and it may cause it to move and lodge in a more painful area turning the procedure into more emergent, rather than urgent, issue. Will therefore hold off. Strict return precautions given. Supportive care and instructions clear. All of his questions and concerns were addressed, he is in agreement with this plan. [facility] All Active Problems (Updated 09/29/24 @ 12:35 by GIO Nam) Acute UTI (Acute) Nephrolithiasis (Chronic) Colon polyp (Acute) Screening for malignant neoplasm of colon performed (Acute) Medical History (Updated 09/29/24 @ 12:35 by GIO Nam) Soft tissue mass Skin lesion Prediabetes Hypertriglyceridemia Epistaxis Cavitating mass in left lower lung lobe Fatigue Low testosterone No significant past medical history Surgical History (Updated 05/23/23 @ 14:28 by Swapna Salter) History of colonoscopy (~05/2023) Biopsy, Soft Tissue (10/13/17) skin of back, left upper - melanocytic nevus. Right lower - melanocytic nevus. Social History (Updated 05/08/23 @ 08:22 by GIO Church) Smoking/Tobacco Use Status: Never Smoking risk assessment performed?: Yes Alcohol Intake: current Alcohol Intake frequency: a few times a month Alcohol type: beer Drug use: Never Substance use type: does not use Details: alcohol: t-7, one beer Housing: house Do you feel safe at home: Yes Do you feel safe in your relationship?: Yes Additional Social history: unable to assess privately
--- NOTE | 2024-09-29 09:45 | DI.CT_ITS ---
Exam(s) CT RENAL COLIC WO EXAM: CT RENAL COLIC WO CLINICAL HISTORY: right flank pain with radiation to groin. TECHNIQUE: Imaging Protocol: Axial computed tomography images with coronal and sagittal reformatted images were created and reviewed. COMPARISON: CT RENAL COLIC WO CONTRAST from 08/27/[address] chest PE CTA from 03/18/[address] chest PE CTA from 03/18/[address] CHEST W from 06/11/[address] CHEST W from 06/19/2018 FINDINGS: Lack of IV contrast does limit evaluation of the abdominal pelvic organs. ABDOMEN: Lung Bases: Normal where visualized. Liver: Normal density. No measurable mass. Gallbladder and biliary tract: No radiodense calculus or biliary ductal dilation. Pancreas: Normal density, no abnormal calcifications or inflammatory process. Spleen: Normal. Kidneys: Normal size, contour and axis.There is a 1.1 cm right renal pelvic stone causing mild hydronephrosis. There is a 5 mm stone in the left kidney without evidence of hydronephrosis. No masses seen. Adrenal glands: No mass is seen. Lymph nodes: Within normal limits. Abdominal Aorta: Abdominal portion non-dilated. PELVIS: Bladder:Symmetric distention, no gross wall thickening. There is a 2 cm diverticulum on the left aspect of the urinary bladder. Bowel: There is diverticulosis of the colon without evidence of acute diverticulitis. There is no evidence of bowel obstruction or bowel wall thickening. The stomach is incompletely distended limiting evaluation. Appendix is unremarkable. Peritoneal cavity: No ascites, collection or mesenteric inflammatory response. No free air. Reproductive organs: Unremarkable as visualized. Bones: Within normal limits. Soft Tissues: There is a small fat containing left inguinal hernia. IMPRESSION: 1.1 cm right renal pelvic stone causing mild hydronephrosis. RADIATION DOSE DELIVERED: 942.54mGy.cm Total DLP DATA REPOSITORY: All CT scans at this facility are submitted to the National Radiology Data Registry (NRDR) Dose Index Registry (DIR) with the [employer] (ACR). RADIATION OPTIMIZATION: All CT scans at this facility use at least one of these dose optimization techniques: automated exposure control; mA and/or kV adjustment per patient size (includes targeted exams where dose is matched to clinical indication); or iterative reconstruction.
[2024-09-29 09:58] LABS: Abs Immature Grans 0.02 10^3/uL (0.0-0.06); HCT 42.4 % (40.0-50.0); HGB 14.0 g/dL (13.5-17.5); Immature Grans % 0.3 %; MCH 29.1 pg (27.0-33.0); MCHC 33.0 % (32.0-36.0); MCV 88 fL (80-95); MPV 11.6 fL (8.0-11.0); Platelet Count 153 10^3/uL (130-400); RBC 4.81 10^6/uL (4.36-5.78); RDW 12.5 % (11.8-14.1); RDW-SD 40.5 fL; WBC 7.28 10^3/uL (4.4-10.8)
[2024-09-29] MEDS: Normal Saline 1,000 ML 1000 ML IV (10:04)
[2024-09-29 10:19] LABS: ALT 25 U/L (16-63); AST 17 U/L (15-37); Albumin 4.2 g/dL (3.4-5.0); Alkaline Phosphatase 75 U/L (46-116); Anion Gap 7.5 mmol/L (3-11); BUN 15 mg/dL (7-18); Bilirubin, Total 0.8 mg/dL (0.2-1.0); CO2 27.5 mmol/L (21.0-32.0); Calcium 9.0 mg/dL (8.5-10.1); Chloride 105 mmol/L (98-107); Estimated GFR 70.98 (mL/min/1.73m2); Glucose 116 mg/dL (74-106); Potassium 3.9 mmol/L (3.5-5.1); Sodium 140 mmol/L (136-145); Total Protein 7.3 g/dL (6.4-8.2)
[2024-09-29 11:55] LABS: Glucose Negative (Negative)
[2024-09-29 12:02] LABS: RBC 20-50 HPF (0-2)
[2024-09-29 12:03] LABS: C & S Indicated? Yes
[2024-09-29 12:26] VITALS: BP 125/73; PULSE 52; RESP 16; O2SAT 98
--- NOTE | 2024-10-02 08:23 | NUR.NOTE ---
Access chart to determine antibiotic on discharge for urine culture. Nursing Note:
--- NOTE | 2024-10-02 16:09 | W.ED.FU ---
Date of service: 10/02/24 Time of Service: 16:09 Follow Up Plan: Positive urine culture patient, who has a urinary tract infection with a known renal stone. Urine is growing Enterococcus faecalis, susceptible to ciprofloxacin. He was started on Bactrim but given the lack of susceptibility data for this medication and this bacteria, a new prescription for ciprofloxacin, 500 mg twice daily for 7 days given the complicated nature of the UTI was sent to his pharmacy. I did reach out to the patient by phone and was able to inform him of this antibiotic change. The patient reports that he is feeling quite well, and has scheduled follow-up with urology on Friday. I counseled him to take all the antibiotic until it is gone, even if it starts to feel better, and to stop the Bactrim at this time. The patient had an opportunity to have all questions answered. Lisa Watkins MD
== END 2024-09-29 12:46 | disposition home or self-care (01) ==
PROVIDERS: Emergency Provider Physician Assistant; PCP Family Medicine
DX: N39.0 Urinary tract infection, site not specified (principal); N20.0 Calculus of kidney; R10.31 Right lower quadrant pain
CPT/HCPCS: 36415; 80053; 87077; 96360; 99284; 74176; 81003; 81015; 85025; 87086; 87186

== ENCOUNTER 2024-10-21 07:24 | Day surgery (SDC) | payer BC, SELFPAY ==
[2024-10-21] VITALS (26 sets, daily range): BP systolic 85–137; BP diastolic 52–89; PULSE 39–57; RESP 12–24; TEMP 36.1–36.6; O2SAT 86–99; BMI 35.9
--- NOTE | 2024-10-21 07:51 | ANES.PREOP_ITS ---
General Info Date of Service Date Performed: 10/21/24 Height: 6 ft 4 in Weight: 133.8 kg Body Mass Index (BMI): 35.9 Surgical Procedure: Operation Date: 10/21/24 08:40 Proposed Procedure Side Surgeon p Cystoscopy/Laser/Retrograde/Ureteroscopy/Stent Right Terry Argueta MD Meds Allergies and Home Medications Allergies Allergy/AdvReac Type Severity Reaction Status Date / Time No Known Allergies Allergy Verified 10/21/24 07:33 Home Medication ?Medication ?Instructions ?Recorded ondansetron 4 mg disintegrating 4 mg PO Q6H PRN nausea and 09/29/24 tablet vomiting #10 tabs Current Visit Medications: Current Medications Generic Name Dose Route Start Last Admin Trade Name Freq PRN Reason Stop Dose Admin Ringer's Solution 1,000 mls @ 80 mls/hr 10/21/24 06:00 IV 10/21/24 23:59 INFUSION FINA Cefazolin Sodium/Dextrose 2 gm in 50 mls @ 100 mls/hr 10/20/24 06:00 Ancef Duplex IVPB 10/21/24 23:59 .PREOP FINA IV Miscellaneous Supplies 1 each 10/21/24 06:00 Iv Access IV 10/21/24 23:59 DIRECTED FINA Sodium Chloride 0 ml 10/21/24 06:00 Normal Saline Flush 10 Ml Syr IV 10/21/24 23:59 PRN PRN Sodium Chloride 0 ml 10/21/24 06:00 Normal Saline 10 Ml Vial IJ 10/21/24 23:59 DIRECTED PRN Sterile Water 0 ml 10/21/24 06:00 Water,Injection,Sterile 10 Ml Vial IJ 10/21/24 23:59 DIRECTED PRN PFSH Active Problems Active Problems: Problem Status Onset Code Acute UTI Acute N39.0 Nephrolithiasis Chronic N20.0 Colon polyp Acute K63.5 Screening for malignant neoplasm of colon performed Acute Z12.11 Medical History Medical History Soft tissue mass Skin lesion Prediabetes Hypertriglyceridemia Epistaxis Cavitating mass in left lower lung lobe Per pt was a cyst, and this has resolved Fatigue Low testosterone No significant past medical history Surgical History Surgical History History of colonoscopy (~05/2023) Biopsy, Soft Tissue (10/13/17) skin of back, left upper - melanocytic nevus. Right lower - melanocytic nevus. Tobacco Smoking/Tobacco Use Status: Never Passive smoking exposure: Yes Alcohol Alcohol Intake: current Alcohol intake frequency: a few times a month Alcohol type: beer Substance Use Substance use: Never Substance use type: does not use Vital Signs and Lab Results Vital Signs Most Recent Vital Signs in EMR: Most Recent Vital Signs Temp Pulse Resp BP Pulse Ox 36.5 C 57 L 16 137/89 98 10/21/24 07:39 10/21/24 07:39 10/21/24 07:39 10/21/24 07:39 10/21/24 07:39 Lab Results Complete Blood Count: WBC, (4.4-10.8) 7.28 10^3/uL 09/29/24, 09:40 RBC, (4.36-5.78) 4.81 10^6/uL 09/29/24, 09:40 Hgb, (13.5-17.5) 14.0 g/dL 09/29/24, 09:40 Hct, (40.0-50.0) 42.4 % 09/29/24, 09:40 Plt Count, (130-400) 153 10^3/uL 09/29/24, 09:40 Complete Metabolic Panel: Sodium, (136-145) 140 mmol/L 09/29/24, 09:40 Potassium, (3.5-5.1) 3.9 mmol/L 09/29/24, 09:40 Chloride, (98-107) 105 mmol/L 09/29/24, 09:40 Carbon Dioxide, (21.0-32.0) 27.5 mmol/L 09/29/24, 09 :40 BUN, (7-18) 15 mg/dL 09/29/24, 09:40 Creatinine, (0.70-1.30) 1.2 mg/dL 09/29/24, 09:40 Est GFR (CKD-EPI 2020), (mL/min/1.73m2) 70.98 09/29/24, 09:40 Calcium, (8.5-10.1) 9.0 mg/dL 09/29/24, 09:40 Albumin, (3.4-5.0) 4.2 g/dL 09/29/24, 09:40 Glucose, (74-106) 116 mg/dL H 09/29/24, 09:40 Liver Function Panel: ALT, (16-63) 25 U/L 09/29/24, 09:40 AST, (15-37) 17 U/L 09/29/24, 09:40 Anesthesia Assessment and Plan Anesthesia History Personal History: No History of Anesthesia Complications Family History: No Family History of Anesthesia Complications Exercise Tolerance Exercise Tolerance: Metabolic Equivalents>4 Pertinent Negatives Pertinent Negatives: No Symptoms of GERD Cardiac & Pulmonary Exam Cardiac Exam: Normal S1/S2 Heart Sounds Pulmonary Exam: Clear Bilateral Breath Sounds Implantable Cardiac Device Does patient have a Pacemaker or an ICD?: No Airway Exam Known Difficult Airway: No Mallampati Class: 2 Mouth Opening: Normal (> 3cm) Thyromental Distance: Greater than 3 cm Neck Range of Motion: Full ROM Neck Circumference: Normal Teeth Condition: Edentulous (dentures at home) ASA Classification ASA Score: ASA 2 Emergency Case?: No NPO Status NPO Status: NPO Clears >2 hours, Solids >8 hours Anesthesia Plan Resuscitation Status: Full Code Anesthesia Technique: General Anesthesia Airway Planned: LMA Monitors Used: Standard Monitors
[2024-10-21] MEDS: Lactated Ringers 1,000 ML 80 ML IV (08:03)
--- NOTE | 2024-10-21 08:10 | W.PM.HP.N ---
Date of service: 10/21/24 Time of Service: 08:10 Assessment and Plan Assessment and plan (1) Nephrolithiasis: Status: Chronic Assessment and plan: We will plan to do cystoscopy, right retrograde pyelogram, right flexible ureteroscopy, holmium laser lithotripsy of the stone. We likely will need to place a ureteral stent. Given the size of the stone, it would not surprise me if we require a staged procedure to address all of this gentlemen's stone. History of Present Illness History of Present Illness Chief Complaint: Right ureteral stone Narrative: This is a 54-year-old gentleman who does have a past medical history of kidney stones. He recalls having a left-sided stone about 14 years ago. He never required surgery, but he is not certain that he passed the stone either. He recently presented to our emergency department recently with right flank pain, nausea and dry heaves.. He was found to have a large right proximal ureteral stone. He also had a positive urine culture (Enterococcus) He was treated with antibiotics. He has had absolutely no pain since his ER visit. He denies any dysuria or gross hematuria. He has no fevers or chills. He presents now for stone manipulation. Review of Systems Narrative: No fevers or chills No vision change or dysphasia No diabetes or thyroid dysfunction No shortness of breath, cough or hemoptysis No chest pain or palpitations No nausea, vomiting, hepatitis, ulcers, jaundice No seizures, strokes or peripheral neuropathy No bleeding disorders or anemia No gout PFSH All Active Problems Acute UTI (Acute) Nephrolithiasis (Chronic) Colon polyp (Acute) Screening for malignant neoplasm of colon performed (Acute) Medical History Soft tissue mass Skin lesion Prediabetes Hypertriglyceridemia Epistaxis Cavitating mass in left lower lung lobe Per pt was a cyst, and this has resolved Fatigue Low testosterone No significant past medical history Surgical History History of colonoscopy (~05/2023) Biopsy, Soft Tissue (10/13/17) skin of back, left upper - melanocytic nevus. Right lower - melanocytic nevus. Social History Smoking/Tobacco Use Status: Never Smoking risk assessment performed?: Yes Alcohol Intake: current Alcohol Intake frequency: a few times a month Alcohol type: beer Drug use: Never Substance use type: does not use Housing: house Do you feel safe at home: Yes Do you feel safe in your relationship?: Yes Meds Allergies and Home Medications Allergies Allergy/AdvReac Type Severity Reaction Status Date / Time No Known Allergies Allergy Verified 10/21/24 07:33 Home Medications ?Medication ?Instructions ?Recorded ?Confirmed ?Type ondansetron 4 mg disintegrating 4 mg PO Q6H PRN nausea and 09/29/24 10/21/24 Rx tablet vomiting #10 tabs Exam Const General: cooperative Neck Neck: supple Resp Effort & Inspection: normal respiratory effort Auscultation: clear to auscultation bilaterally Cardio Rate: regular rate Rhythm: regular rhythm GI Palpation: soft and no masses Neuro General: patient alert, patient awake and patient oriented x3 Results Last Vital Signs Temp 36.5 C 10/21/24 07:39 Pulse 57 L 10/21/24 07:39 Resp 16 10/21/24 07:39 BP 137/89 10/21/24 07:39 Pulse Ox 98 10/21/24 07:39 Time Spent Time spent with Patient: <40 minutes Time was spent: other
[2024-10-21] MEDS: ceFAZolin 2 GM/50 ML BAG IVPB (08:54)
[2024-10-21] MEDS: Lidocaine 2% Jelly 11 ML SYR (09:31)
[2024-10-21] MEDS: Omnipaque 300 MG/ML 50 ML BTL (09:59)
--- NOTE | 2024-10-21 10:03 | W.PM.DSUDISC ---
Date of service: 10/21/24 Discharge Plan Disposition Patient Disposition: Home Condition: Stable Discharge Details Reason For Visit: ureteroscopy Attending Provider: Terry Argueta Primary Care Provider: Radha Sanchez Home Meds and New Rx's Prescriptions: No Action ondansetron 4 mg tablet,disintegrating 4 mg PO Q6H PRN (Reason: nausea and vomiting) Qty: 10 0RF Discharge Instructions Additional Instructions: There is no need to strain your urine You have a ureteral stent in place. While the stent is there, it is not unusual to have blood in the urine, urinate more frequently or have some discomfort when you urinate My office will contact you to make arrangements for a return trip to the operating room. I will plan to remove your stent and run a scope back up to make sure all the stone pieces have been removed. Activity:: Activity as Tolerated Shower/Bathe:: 24 hours Diet:: As Tolerated DS: Diagnosis Discharge Diagnosis (1) Nephrolithiasis: Status: Chronic
--- NOTE | 2024-10-21 10:06 | W.PM.DSUDISC ---
Date of service: 10/21/24 Discharge Plan Disposition Patient Disposition: Home Condition: Stable Discharge Details Reason For Visit: ureteroscopy Attending Provider: Terry Argueta Primary Care Provider: Radha Sanchez Home Meds and New Rx's Prescriptions: New tramadol 50 mg tablet 50 mg PO Q6H MDD 4 PRN (Reason: pain) Qty: 20 0RF Rx Instructions: may take with tylenol and NSAIDs No Action ondansetron 4 mg tablet,disintegrating 4 mg PO Q6H PRN (Reason: nausea and vomiting) Qty: 10 0RF Discharge Instructions Additional Instructions: There is no need to strain your urine You have a ureteral stent in place. While the stent is there, it is not unusual to have blood in the urine, urinate more frequently or have some discomfort when you urinate My office will contact you to make arrangements for a return trip to the operating room. I will plan to remove your stent and run a scope back up to make sure all the stone pieces have been removed. Activity:: Activity as Tolerated Shower/Bathe:: 24 hours Diet:: As Tolerated Discharge Orders Discharge Orders: Discharge Order (Routine); Ordered 10/21/24 Ordered By: Terry Argueta DS: Diagnosis Discharge Diagnosis (1) Nephrolithiasis: Status: Chronic
--- NOTE | 2024-10-21 10:08 | W.PM.OP ---
Operative Note Operative Note PRE-OP DIAGNOSIS: right ureteral stone POST-OP DIAGNOSIS: same PROCEDURE: Cystoscopy, right retrograde pyelogram, right flexible ureteroscopy, holmium laser lithotripsy of stone, extraction of stone fragments, insert right ureteral stent SURGEON: Terry Argueta ANESTHESIA TYPE: Local By Surgeon and General LMA/ETT Refer to Anesthesia Record ESTIMATED BLOOD LOSS: 5 PATHOLOGY: other (stones for chemical analysis) COMPLICATIONS: None Patient was transported to: PACU Patient's condition: stable Implants: 6 Mongolian by 22 to 30 cm right ureteral stent Indications: This is a 54-year-old gentleman who presented to the emergency department with right sided renal colic. He was found to have a large right proximal ureteral stone. Given the size of the stone, it is not expected to pass spontaneously. He presents for stone manipulation Findings: Large right proximal ureteral stone bumped back into the renal pelvis Procedure Description: The patient was given IV antibiotics and brought to the operating room on 10/2024. After successful induction of general anesthesia, he was placed in the dorsal lithotomy position. His genitalia was prepped and draped. 2% Xylocaine jelly was instilled into the urethra. A 22 Mongolian rigid cystoscope was passed through the urethra into the bladder. The urethra and bladder were inspected with the 30 degree lens. The pendulous, bulbar and membranous urethra appeared normal with no strictures. The prostatic urethra showed some lateral lobe enlargement but no significant median lobe. The bladder neck was entered and the bladder mucosa was inspected. No stones were seen within the bladder lumen. The right ureteral orifice was visualized and was cannulated with a 5 Mongolian access catheter. A retrograde pyelogram was obtained by injecting Omnipaque through the access catheter under fluoroscopic guidance. A filling defect was seen in the renal pelvis. I then passed a guidewire through the lumen of the access catheter and removed the catheter and the cystoscope. I passed a dual-lumen catheter over the wire and positioned a second wire. We chose one of the wires as a working wire and the other is a safety wire. A ureteral access sheath was passed over the working wire leaving the safety wire in place. I then passed the flexible ureteroscope through the lumen of the access sheath and advanced the scope up to the renal pelvis. A large stone was visualized in the pelvis. The stone was then treated with a 272 ?m holmium laser fiber. We used a combination of fragmentation settings along with dusting settings. The large stone fragments were grasped and a ZeroTip stone basket and removed. The stone particles that were retrieved were sent to the laboratory for chemical analysis. At the completion of the procedure, I believe the stone was well fragmented but I am not certain that all stone fragments were removed. We elected to place a right ureteral stent and make a return trip to the operating room for stent removal and repeat ureteroscopy. The ureteral access sheath was removed and a 6 Mongolian variable length stent was advanced over the safety wire. The proximal end of the stent was curled in pelvis and the distal end curled within the bladder. The positioning of the stent was confirmed both fluoroscopically and cystoscopically. The patient tolerated this procedure well with no complications. Date of Procedure: 10/21/24
--- NOTE | 2024-10-21 10:14 | DI.RAD_ITS ---
Exam(s) XR RETROGRADE IN OR EXAM: XR RETROGRADE IN OR CLINICAL HISTORY: Nephrolithiasis. TECHNIQUE: Fluoroscopy was provided for the referring physician for guidance with performing retrograde procedure. COMPARISON: No exams were available for comparison FINDINGS: Please see procedure note for details. Fluoro time: 41 seconds RADIATION DOSE DELIVERED: delia Donaldson=15.1 mGy
[2024-10-21] MEDS: ePHEDrine 25 MG/5 ML Syringe IVP (10:35)
[2024-10-21] MEDS: Phenazopyridine 200 MG TAB PO (11:03)
--- NOTE | 2024-10-21 11:07 | W.ANESPOSTOP ---
Postoperative Evaluation Date, Time and Location Date Performed: 10/21/24 Time Performed: 10:40 Patient Location: PACU Vital Signs Most Recent Imported Vital Signs: Most Recent Vital Signs Temp Pulse Resp BP Pulse Ox 36.1 C L 49 L 14 104/68 97 10/21/24 10:53 10/21/24 10:53 10/21/24 10:53 10/21/24 10:53 10/21/24 10:53 Pain Score Most Recent Pain Score: Most Recent Pain Score Pain Level 0 10/21/24 10:53 Assessment Mental Status: Awake (Alert & Oriented to Patient Baseline) Airway and Respiratory Function: Patent airway with normal (patient baseline) respiratory exam Cardiovascular Function: Hemodynamically Stable Hydration Status: Adequately Hydrated Nausea & Vomiting: No Nausea or Vomiting Pain: Pt. Denies Any Pain Peripheral Nerve Block: Patient did not receive a nerve block
--- NOTE | 2024-10-21 12:15 | RT.EKG_ITS ---
APPROVED REPORT Exam: Resting ECG Reason for Exam: post op syncope. Patient Location: O HR:50 bpm ECG Measurements Heart Rate 50 AXIS DE [id number] P [id number] QRSd 99 QRS -15 QT 458 T 44 QTc 419 Conclusion Atrial fibrillation...V-rate 48- 52, irreg A-activity
[2024-10-21] MEDS: traMADol 50 MG TAB PO (12:45)
== END 2024-10-21 14:15 | disposition home or self-care (01) ==
PROVIDERS: PCP Family Medicine; Visit Provider Urology
PROC: (CPT 52356; principal; 2024-10-21 08:30)
DX: N20.1 Calculus of ureter (principal); R73.03 Prediabetes; E78.1 Pure hyperglyceridemia
CPT/HCPCS: 52356; 74420; 82365; 93005; 93010; J0131; J0690; J1100; J1885; J2250; J2405; J2704; Q9967

== ENCOUNTER 2024-10-26 11:56 | Outpatient (CLI) | payer BC, SELFPAY ==
[2024-10-26 10:05] LABS: Abs Immature Grans 0.02 10^3/uL (0.0-0.06); HCT 43.5 % (40.0-50.0); HGB 14.7 g/dL (13.5-17.5); Immature Grans % 0.3 %; MCH 29.5 pg (27.0-33.0); MCHC 33.8 % (32.0-36.0); MCV 87 fL (80-95); MPV 11.0 fL (8.0-11.0); Platelet Count 190 10^3/uL (130-400); RBC 4.98 10^6/uL (4.36-5.78); RDW 12.4 % (11.8-14.1); RDW-SD 40.0 fL; WBC 7.29 10^3/uL (4.4-10.8)
[2024-10-26 10:17] LABS: Hemoglobin A1C 5.8 % (<5.7)
[2024-10-26 10:50] LABS: ALT 36 U/L (16-63); AST 19 U/L (15-37); Albumin 3.5 g/dL (3.4-5.0); Alkaline Phosphatase 81 U/L (46-116); Anion Gap 9.7 mmol/L (3-11); BUN 16 mg/dL (7-18); Bilirubin, Total 0.6 mg/dL (0.2-1.0); CO2 26.3 mmol/L (21.0-32.0); Calcium 9.1 mg/dL (8.5-10.1); Chloride 104 mmol/L (98-107); Estimated GFR 88.33 (mL/min/1.73m2); Glucose 124 mg/dL (74-106); Magnesium 2.4 mg/dL (1.8-2.4); Potassium 4.0 mmol/L (3.5-5.1); Sodium 140 mmol/L (136-145); TSH (W/Ref FT4) 2.28 uIU/mL (0.36-3.74); Total Protein 7.8 g/dL (6.4-8.2)
== END 2024-10-26 11:57 | disposition home or self-care (01) ==
LOC: LBO 11:56
PROVIDERS: PCP Family Medicine; Visit Provider Family Medicine
DX: I48.91 Unspecified atrial fibrillation (principal)
CPT/HCPCS: 36415; 80053; 83036; 83735; 84443; 85025

== ENCOUNTER 2024-10-27 10:52 | Outpatient (CLI) | payer BC, SELFPAY | END 2024-10-27 10:53 | disposition home or self-care (01) | LOC: CARDOPNVT 10:52 | PROVIDERS: PCP Family Medicine; Visit Provider Family Medicine | DX: I48.91 Unspecified atrial fibrillation (principal) | CPT/HCPCS: 93246 ==

== ENCOUNTER 2024-11-11 13:36 | Outpatient (CLI) | payer BC, SELFPAY ==
[2024-11-11 13:38] LABS: Glucose Negative (Negative)
[2024-11-11 13:47] LABS: C & S Indicated? Yes; RBC 20-50 HPF (0-2); WBC >50 HPF (0-5)
[2024-11-12 10:57] LABS: Lyme Ab w Rflx to Lyme Confirm Negative (Negative)
== END 2024-11-11 13:37 | disposition home or self-care (01) ==
LOC: LBO 13:37
PROVIDERS: PCP Family Medicine; Visit Provider Family Medicine
DX: I48.91 Unspecified atrial fibrillation (principal)
CPT/HCPCS: 36415; 87077; 81003; 81015; 86618; 87086; 87186

== ENCOUNTER 2024-11-18 07:45 | Outpatient (CLI) | payer BC, SELFPAY ==
--- NOTE | 2024-11-18 11:20 | W.CARDEVENT ---
Date of service: 11/18/24 Time of Service: 11:20 Cardiac Event Recorder Referring Provider:: Radha Sanchez Indications:: Syncope Cardiac Event Note: This is a cardiac event monitor. Patient was monitored for 13 days and 3 hours Rhythm throughout was sinus with average heart rate of 72. Minimum was 38, maximum 162 There were very rare isolated atrial and ventricular ectopic beats There was no atrial fibrillation, no high-grade AV block, no pauses greater than 3 seconds. No symptoms were reported
== END 2024-11-18 07:46 | disposition home or self-care (01) ==
LOC: CARDOPNVT 07:45
PROVIDERS: PCP Family Medicine; Visit Provider Internal Medicine Cardiovascular Disease
DX: R55 Syncope and collapse (principal)
CPT/HCPCS: 93248

== ENCOUNTER 2024-11-25 11:12 | Day surgery (SDC) | payer BC, SELFPAY ==
[2024-11-25] VITALS (15 sets, daily range): BP systolic 104–135; BP diastolic 68–86; PULSE 42–52; RESP 11–16; TEMP 36–36.5; O2SAT 95–99; BMI 35.4
[2024-11-25] MEDS: Lactated Ringers 1,000 ML 80 ML IV (11:46)
--- NOTE | 2024-11-25 12:08 | HPE_ITS ---
Date of service: 11/25/24 Time of Service: 12:08 Assessment and Plan Assessment and plan (1) Right kidney stone: Status: Acute Assessment and plan: We will plan to remove his stent and run a flexible ureteroscope back up to the kidney to ensure that all stone fragments have been addressed. History of Present Illness History of Present Illness Chief Complaint: right kidney stone Narrative: This is a 54-year-old gentleman who initially presented with a right ureteral st one. He underwent ureteroscopy and holmium laser lithotripsy of his stone. We felt that we were able to fragment the stone quite well, but we were not certain that all stone fragments had been removed. He presents for repeat ureteroscopy to address any residual fragments. He developed a urinary tract infection and his stent was in place. His urine culture grew Enterococcus. He has completed his antibiotic. Review of Systems Narrative: No fevers or chills No vision change or dysphasia No diabetes or thyroid dysfunction No shortness of breath, cough or hemoptysis Atrial fibrillation. No chest pain No hepatitis, ulcers, jaundice No seizures, strokes or peripheral neuropathy No bleeding disorders or anemia No gout PFSH All Active Problems (Updated 11/25/24 @ 12:09 by Terry Argueta MD) Right kidney stone (Acute) Colon polyp (Acute) Screening for malignant neoplasm of colon performed (Acute) Medical History (Updated 11/25/24 @ 12:09 by Terry Argueta MD) Soft tissue mass Skin lesion Prediabetes Hypertriglyceridemia Epistaxis Cavitating mass in left lower lung lobe Per pt was a cyst, and this has resolved Fatigue Low testosterone No significant past medical history Surgical History History of colonoscopy (~05/2023) Biopsy, Soft Tissue (10/13/17) skin of back, left upper - melanocytic nevus. Right lower - melanocytic nevus. Social History Smoking/Tobacco Use Status: Never Smoking risk assessment performed?: Yes Alcohol Intake: current Alcohol Intake frequency: a few times a week Alcohol type: beer Drug use: Never Substance use type: does not use Housing: house Do you feel safe at home: Yes Do you feel safe in your relationship?: Yes Meds Allergies and Home Medications Allergies Allergy/AdvReac Type Severity Reaction Status Date / Time No Known Allergies Allergy Verified 11/25/24 11:35 Home Medications ?Medication ?Instructions ?Recorded ?Confirmed ?Type ondansetron 4 mg disintegrating 4 mg PO Q6H PRN nausea and 09/29/24 11/25/24 Rx tablet vomiting #10 tabs tramadol 50 mg tablet 50 mg PO Q6H PRN pain #20 ta bs 10/21/24 11/25/24 Rx amoxicillin 500 mg capsule mg 11/25/24 History Exam Const General: cooperative Neck Neck: supple Resp Effort & Inspection: normal respiratory effort Auscultation: clear to auscultation bilaterally Cardio Rate: regular rate Rhythm: regular rhythm GI Palpation: soft and no masses Neuro General: patient alert, patient awake and patient oriented x3 Results Labs Labs: RUN DATE: 11/25/24 [facility] PAGE 1 RUN TIME: [address] RUN USER: [place] [address] Kelli Fragoso MD PATIENT REPORT PATIENT: Paxton Franco LOC: [facility] U #: [id number] /SX: [id number] M ROOM: RE10/21/[address]: TERRY ARGUETA MD STATUS: [facility] BED: DIS: SPEC #: [id number] MASOUD: 10/21/24 STATUS: COMP REQ #: [id number] RECD: 10/21/[address]: TERRY ARGUETA MD ENTERED: 10/21/[address]: RAMY PONCE MD FAX #: ORDERED: Stone Anaylsis QUERIES: Source: Right Ureter Test Result Flag Reference Verified Kidney Stone Analysis Source: Right Ureter 11/02/24 Interpretation SEE BELOW 11/02/24 RESULT: 100% Calcium oxalate monohydrate. Result Comment See Comment 11/02/24 For stones containing calcium oxalate, calcium phosphate, and/or uric acid, a 24 hr urinary supersaturation test may help detect underlying risk factors for this type of stone formation and provide guidance for a stone prevention strategy. ADDITIONAL INFORMATION This test was developed and its performance characteristics determined by [facility] in a manner consistent with CLIA requirements. This test has not been cleared or approved by the U.S. Food and Drug Administration. Test Performed by: [facility] - [facility], [place] [address] [place] [id number] Environmental Scientist: Mayda Salinas Ph.D.; CLIA# [id number] Patient: Paxton Franco LABORATORY Acct#[id number] Unit#[id number] Last Vital Signs Temp 36 C L 11/25/24 11:20 Pulse 52 L 11/25/24 11:20 Resp 16 11/25/24 11:20 BP 135/75 11/25/24 11:20 Pulse Ox 95 11/25/24 11:20 Time Spent Time spent with Patient: <40 minutes Time was spent: other
--- NOTE | 2024-11-25 12:15 | DI.RAD_ITS ---
Exam(s) XR RETROGRADE IN OR EXAM: XR RETROGRADE IN OR CLINICAL HISTORY: RIGHT KIDNEY STONE TECHNIQUE: 2D and realtime digital imaging was performed. CONTRAST MATERIAL: Refer to procedure report. COMPARISON: No exams were available for comparison FINDINGS: Fluoroscopy was provided for Dr. Argueta during the performance of a retrograde evaluation of the renal collecting system. Please refer to the procedure report for complete details. Ka,r=7.34 mGy IMPRESSION: RADIATION DOSE DELIVERED: 0.0 0.0 0
--- NOTE | 2024-11-25 12:27 | ANES.PREOP_ITS ---
General Info Date of Service Date Performed: 11/25/24 Height: 6 ft 4 in Weight: 132.2 kg Body Mass Index (BMI): 35.4 Surgical Procedure: Operation Date: 11/25/24 12:40 Proposed Procedure Side Surgeon p Cystoscopy/Possible Laser/Retrograde/Ureteroscopy/Stent Removal Right Terry Argueta MD Meds Allergies and Home Medications Allergies Allergy/AdvReac Type Severity Reaction Status Date / Time No Known Allergies Allergy Verified 11/25/24 11:35 Home Medication ?Medication ?Instructions ?Recorded ondansetron 4 mg disintegrating 4 mg PO Q6H PRN nausea and 09/29/24 tablet vomiting #10 tabs tramadol 50 mg tablet 50 mg PO Q6H PRN pain #20 ta bs 10/21/24 amoxicillin 500 mg capsule mg 11/25/24 Current Visit Medications: Current Medications Generic Name Dose Route Start Last Admin Trade Name Freq PRN Reason Stop Dose Admin Ringer's Solution 1,000 mls @ 80 mls/hr 11/25/24 06:00 11/25/24 11:46 IV 11/25/24 23:59 80 mls/hr INFUSION FINA Administration Cefazolin Sodium/Dextrose 2 gm in 50 mls @ 100 mls/hr 11/25/24 06:00 Ancef Duplex IVPB 11/25/24 23:59 PREOP FINA IV Miscellaneous Supplies 1 each 11/25/24 06:00 Iv Access IV 11/25/24 23:59 DIRECTED FINA Sodium Chloride 0 ml 11/25/24 06:00 Normal Saline Flush 10 Ml Syr IV 11/25/24 23:59 PRN PRN Sodium Chloride 0 ml 11/25/24 06:00 Normal Saline 10 Ml Vial IJ 11/25/24 23:59 DIRECTED PRN Sterile Water 0 ml 11/25/24 06:00 Water,Injection,Sterile 10 Ml Vial IJ 11/25/24 23:59 DIRECTED PRN PFSH Active Problems Active Problems: Problem Status Onset Code Right kidney stone Acute N20.0 Colon polyp Acute K63.5 Screening for malignant neoplasm of colon performed Acute Z12.11 Medical History Medical History (Updated 11/25/24 @ 12:09 by Terry Argueta MD) Soft tissue mass Skin lesion Prediabetes Hypertriglyceridemia Epistaxis Cavitating mass in left lower lung lobe Per pt was a cyst, and this has resolved Fatigue Low testosterone No significant past medical history Surgical History Surgical History History of colonoscopy (~05/2023) Biopsy, Soft Tissue (10/13/17) skin of back, left upper - melanocytic nevus. Right lower - melanocytic nevus. Tobacco Smoking/Tobacco Use Status: Never Passive smoking exposure: Yes Alcohol Alcohol Intake: current Alcohol intake frequency: a few times a week Alcohol type: beer Substance Use Substance use: Never Substance use type: does not use Vital Signs and Lab Results Vital Signs Most Recent Vital Signs in EMR: Most Recent Vital Signs Temp Pulse Resp BP Pulse Ox 36 C L 52 L 16 135/75 95 11/25/24 11:20 11/25/24 11:20 11/25/24 11:20 11/25/24 11:20 11/25/24 11:20 Anesthesia Assessment and Plan Anesthesia History Personal History: No History of Anesthesia Complications Family History: No Family History of Anesthesia Complications Exercise Tolerance Exercise Tolerance: Metabolic Equivalents>4 Pertinent Negatives Pertinent Negatives: No Symptoms of GERD Cardiac & Pulmonary Exam Cardiac Exam: Normal S1/S2 Heart Sounds Pulmonary Exam: Clear Bilateral Breath Sounds Implantable Cardiac Device Does patient have a Pacemaker or an ICD?: No Airway Exam Known Difficult Airway: No Mallampati Class: 2 Mouth Opening: Normal (> 3cm) Thyromental Distance: Greater than 3 cm Neck Range of Motion: Full ROM Neck Circumference: Normal Teeth Condition: Edentulous (dentures at home) ASA Classification ASA Score: ASA 2 Emergency Case?: No NPO Status NPO Status: NPO Clears >2 hours, Solids >8 hours Anesthesia Plan Resuscitation Status: Full Code Anesthesia Technique: General Anesthesia Airway Planned: LMA Monitors Used: Standard Monitors
[2024-11-25] MEDS: ceFAZolin 2 GM/50 ML BAG IVPB (13:01)
[2024-11-25] MEDS: Omnipaque 300 MG/ML 50 ML BTL (13:38)
[2024-11-25] MEDS: Lidocaine 2% Jelly 11 ML SYR (13:39)
--- NOTE | 2024-11-25 13:57 | W.PM.DSUDISC ---
Date of service: 11/25/24 Discharge Plan Disposition Patient Disposition: Home Discharge Details Reason For Visit: remove remaining kidney stones Attending Provider: Terry Argueta Primary Care Provider: Radha Sanchez Home Meds and New Rx's Prescriptions: New ciprofloxacin HCl [Cipro] 500 mg tablet 500 mg PO BID Qty: 6 0RF Discontinued amoxicillin 500 mg capsule Patient Comments: TAKE ONE CAPSULE BY MOUTH EVERY 8 HOURS FOR 7 DAYS No Action ondansetron 4 mg tablet,disintegrating 4 mg PO Q6H PRN (Reason: nausea and vomiting) Qty: 10 0RF tramadol 50 mg tablet 50 mg PO Q6H MDD 4 PRN (Reason: pain) Qty: 20 0RF Rx Instructions: may take with tylenol and NSAIDs Discharge Instructions Additional Instructions: I sent in a new prescription for an additional 3 days of antibiotic followup 6 to 8 weeks with renal US prior to visit Stand Alone Forms: Anesthesia Discharge Inst., Best Gallegos (DSU) Activity:: Activity as Tolerated Shower/Bathe:: 24 hours Diet:: As Tolerated Discharge Orders Discharge Orders: Discharge Order (Routine); Ordered 11/25/24 Ordered By: Terry Argueta DS: Diagnosis Discharge Diagnosis (1) Right kidney stone: Status: Acute
--- NOTE | 2024-11-25 14:04 | ROE_ITS ---
Operative Note Operative Note PRE-OP DIAGNOSIS: Right kidney stones POST-OP DIAGNOSIS: same PROCEDURE: cystoscopy, remove right ureteral stent, right retrograde pyelogram, right ureteroscopy and extraction of residual stone fragments SURGEON: Terry Argueta ANESTHESIA TYPE: Local By Surgeon and General LMA/ETT Refer to Anesthesia Record ESTIMATED BLOOD LOSS: 5 PATHOLOGY: none sent COMPLICATIONS: None Patient was transported to: PACU Patient's condition: stable Implants: none Indications: This is a 54-year-old gentleman who previously presented with a large right proximal ureteral stone. He was treated with ureteroscopy and holmium laser lithotripsy of his stone. The stone fragments were analyzed and was shown to be 100% calcium oxalate monohydrate. At the completion of his initial procedure, we placed a ureteral stone. We were not convinced that all stone fragments had been removed. He presents now for stent removal and repeat ureteroscopy to address any residual stones. Findings: 3 stone fragments remaining in the lower pole calyx Procedure Description: The patient was given IV antibiotics and brought to the operating room on 11/25/2024. After successful induction of general anesthesia, he was placed in the dorsal lithotomy position. His genitalia was prepped and draped. 2% Xylocaine jelly was instilled into the urethra. A 22 Brazilian rigid cystoscope was passed through the urethra into the bladder. Urethra and bladder were inspected using a 30 degree lens. The pendulous, bulbar and membranous urethra all appeared normal with no strictures. The prostatic urethra showed some lateral lobe enlargement but no significant median lobe. The bladder neck was entered and the bladder mucosa was inspected. A stent could be seen protruding from the right ureteral orifice. There was marked edema of the bladder mucosa surrounding the orifice. The stent was grasped with alligator forceps and the stent was removed. I then attempted to cannulate the right ureteral orifice with a 5 Brazilian access catheter, but I was not successful in passing the catheter or passing a wire. I then chose the semirigid ureteroscope that I passed through the urethra into the bladder. I was able to maneuver the scope into the right ureteral orifice and up the right distal ureter. I was then able to pass a wire through the lumen of the scope to gain access to the remainder of the ureter. The scope was then removed and a dual-lumen catheter was advanced over the wire. I injected Omnipaque through the second port of the dual-lumen catheter. This allowed us to outline the calyces in the right kidney. I positioned a second wire up the ureter we chose 1 wire as a working wire and the other as a safety wire. We removed the dual-lumen catheter and passed a ureteral access sheath over the working wire leaving the safety wire in place. I then passed the flexible ureteroscope through the lumen of the ureteral access sheath. Each of the calyces were inspected. We identified a total of 3 stone fragments in the lower pole calyx. Each of these fragments were grasped and a ZeroTip stone basket and removed in their entirety. Since we had already sent the specimens during his last surgery, we elected not to send the stone fragments for chemical analysis. Once the lower pole stones had been addressed, we withdrew the ureteroscope and found no evidence of ureteral injuries or ureteral stones on direct vision. The patient tolerated this procedure well with no complications. He was taken to the recovery room in stable condition. Date of Procedure: 11/25/24
[2024-11-25] MEDS: Phenazopyridine 200 MG TAB PO (14:43)
--- NOTE | 2024-11-25 14:54 | W.ANESPOSTOP ---
Postoperative Evaluation Date, Time and Location Date Performed: 11/25/24 Time Performed: 14:54 Patient Location: Day Surgery Unit Vital Signs Most Recent Imported Vital Signs: Most Recent Vital Signs Temp Pulse Resp BP Pulse Ox 36.3 C L 51 L 16 123/74 99 11/25/24 14:31 11/25/24 14:31 11/25/24 14:31 11/25/24 14:31 11/25/24 14:31 Pain Score Most Recent Pain Score: Most Recent Pain Score Pain Level 0 11/25/24 14:25 Assessment Mental Status: Awake (Alert & Oriented to Patient Baseline) Airway and Respiratory Function: Patent airway with normal (patient baseline) respiratory exam Cardiovascular Function: Hemodynamically Stable Hydration Status: Adequately Hydrated Nausea & Vomiting: No Nausea or Vomiting Pain: Pain is tolerable per patient Peripheral Nerve Block: Patient did not receive a nerve block
== END 2024-11-25 15:25 | disposition home or self-care (01) ==
PROVIDERS: PCP Family Medicine; Visit Provider Urology
PROC: (CPT 52352; principal; 2024-11-25 12:30)
DX: N20.0 Calculus of kidney (principal); E78.1 Pure hyperglyceridemia
CPT/HCPCS: 52352; 74420; J0131; J0690; J1100; J1885; J2003; J2405; J2704; Q9967